=== PATIENT | female | born 1945 | race Hispanic/Latino ===

== ENCOUNTER 2016-11-19 08:54 | Emergency (ER) | payer MEDICARE ==
--- NOTE | 2016-11-19 09:47 | RAD ---
LEFT FOOT THREE VIEWS HISTORY: Oxygen tank fell on foot two weeks ago. COMPARISON: None. FINDINGS: There is extensive edema surrounding the lateral aspect of the fifth metatarsophalangeal joint. Mil d hallux valgus deformity. 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 No acute fracture or malalignment is appreciated. Lisfranc interval is maintained. Small dorsal ca lcaneal spur. IMPRESSION: 1. Moderate to severe edema at the lateral aspect of the fifth metatarsophalangeal joint without fr acture. This may be chronic longstanding bursitis. Recommend correlation with focal tenderness. 2. No acute fracture. POS: [facility]
== END 2016-11-19 10:20 | disposition home or self-care (01) ==
LOC: MADERS 08:54
DX: S90.122A Contusion of left lesser toe(s) without damage to nail, initial encounter (principal); E11.9 Type 2 diabetes mellitus without complications; E78.5 Hyperlipidemia, unspecified; E03.9 Hypothyroidism, unspecified; F41.9 Anxiety disorder, unspecified; Z87.891 Personal history of nicotine dependence; Z79.899 Other long term (current) drug therapy; W20.8XXA Other cause of strike by thrown, projected or falling object, initial encounter